=== PATIENT | male | born 1975 | race Two or more races ===

== ENCOUNTER 2022-08-04 09:54 | Inpatient (IN) | payer MEDICAID, OTHER ==
[~2022-08-04] VITALS: Ht 170.2 cm; Wt 99.6 kg
[2022-08-04] MEDS ORDERED: methylPREDNISolone SOD SUCC 125 MG/2 ML VL IV ONE (10:15)
[2022-08-04] MEDS ORDERED: ALBUTEROL SULF 2.5 MG/0.5ML(0.5%) NEB SOLN NEB ONE ×2 (10:15→10:30)
[2022-08-04] MEDS ORDERED: cefTRIAXone 1GM/50ML D5W 50 ML IV ONE (10:15)
[2022-08-04] MEDS ORDERED: IPRATROPIUM BROM 0.5 MG/2.5ML INH SOL NEB ONE (10:15)
[2022-08-04 11:12] LABS: Basophils # (auto) 0.1 10 ^3/uL (0-0.2); Basophils % (auto) 1.1 % (0.0-2.0); Eosinophils # (auto) 0.3 10 ^3/uL (0-0.8); Eosinophils % (auto) 2.2 % (0.0-7.0); Hematocrit 41.8 % (41.0-53.0); Hemoglobin 13.6 g/dL (13.5-17.5); Lymphocytes # (auto) 0.9 10 ^3/uL (0.4-5.4); Lymphocytes % (auto) 7.4 % (10.0-50.0); Mean Corpuscular Hemoglobin 28.3 pg (28.0-32.0); Mean Corpuscular Hgb Conc. 32.6 g/dL (32.0-36.0); Mean Corpuscular Volume 86.8 fL (80.0-100.0); Monocytes # (auto) 0.7 10 ^3/uL (0-1.3); Neutrophils # (auto) 9.9 10 ^3/uL (1.6-8.6); Neutrophils % (auto) 83.3 % (37.0-80.0); Nucleated Red Blood Cells % 0.1 %; Red Blood Cells 4.82 10^6/uL (4.5-5.90); Red Cell Distribution Width 15.1 % (11.8-14.3); White Blood Cell 11.8 10^3/uL (4.4-10.8)
[2022-08-04 11:32] LABS: Albumin 2.9 g/dL (3.4-5.0); Potassium 3.9 mmol/L (3.5-5.1)
[2022-08-04 12:10] LABS: BUN/Creatinine Ratio 14.3; Bilirubin, Total 0.3 mg/dL (0.2-1.0); Calcium 8.9 mg/dL (8.5-10.1); Total Protein 7.4 g/dL (6.4-8.2)
[2022-08-04] MEDS ORDERED: FUROSEMIDE 100 MG/10ML VIAL IV ONE (13:45)
[2022-08-04] MEDS ORDERED: ENOXAPARIN SOD 150 MG/1 ML SYRINGE SC ONE (13:45)
[2022-08-04 14:57] LABS: Urine Bacteria NONE SEEN /hpf (None Seen); Urine Blood TRACE /uL (Negative); Urine Specific Gravity 1.015 (1.001-1.035); Urine WBC 1 /hpf (0 - 3)
[2022-08-04] MEDS ORDERED: ONDANSETRON HCL 4 MG/2 ML VIAL IV PRN (15:15)
[2022-08-04] MEDS ORDERED: HYDROcodone-ACET 5/325MG TAB PO PRN (15:15)
[2022-08-04] MEDS ORDERED: ACETAMINOPHEN 325 MG TAB PO PRN (15:15)
[2022-08-04] MEDS ORDERED: DOCUSATE SOD 100 MG CAP PO PRN (15:15)
[2022-08-04] MEDS ORDERED: MORPHINE SULFATE INJ 2 MG/ml SYRG IV PRN (15:15)
[2022-08-04] MEDS: IPRATROPIUM BROM 0.5 MG/2.5ML INH SOL NEB PRN (21:56)
[2022-08-04] MEDS: ALBUTEROL SULF 2.5 MG/0.5ML(0.5%) NEB SOLN NEB PRN (21:56)
[2022-08-05 02:57] VITALS: BP 154/98
[2022-08-05 06:24] LABS: Basophils # (auto) 0 10 ^3/uL (0-0.2); Basophils % (auto) 0.2 % (0.0-2.0); Eosinophils # (auto) 0 10 ^3/uL (0-0.8); Hematocrit 41.5 % (41.0-53.0); Hemoglobin 13.5 g/dL (13.5-17.5); Lymphocytes # (auto) 0.7 10 ^3/uL (0.4-5.4); Lymphocytes % (auto) 7.6 % (10.0-50.0); Mean Corpuscular Hemoglobin 28.1 pg (28.0-32.0); Mean Corpuscular Hgb Conc. 32.6 g/dL (32.0-36.0); Mean Corpuscular Volume 86.1 fL (80.0-100.0); Monocytes # (auto) 0.5 10 ^3/uL (0-1.3); Monocytes % (auto) 4.8 % (0.0-12.0); Neutrophils # (auto) 8.5 10 ^3/uL (1.6-8.6); Neutrophils % (auto) 87.4 % (37.0-80.0); Red Blood Cells 4.81 10^6/uL (4.5-5.90); Red Cell Distribution Width 15.1 % (11.8-14.3); White Blood Cell 9.7 10^3/uL (4.4-10.8)
[2022-08-05 06:40] LABS: Potassium 4.6 mmol/L (3.5-5.1)
[2022-08-05 06:47] LABS: Albumin 2.8 g/dL (3.4-5.0); BUN/Creatinine Ratio 21.2; Bilirubin, Total 0.3 mg/dL (0.2-1.0); Calcium 8.9 mg/dL (8.5-10.1); Total Protein 7.2 g/dL (6.4-8.2)
[2022-08-05] MEDS: ENOXAPARIN SOD 40 MG/0.4 ML SYRINGE SC SCH (11:18)
[2022-08-05] MEDS: ALBUTEROL SULF 2.5 MG/0.5ML(0.5%) NEB SOLN NEB PRN ×2 (11:24→18:29)
[2022-08-05] MEDS: IPRATROPIUM BROM 0.5 MG/2.5ML INH SOL NEB PRN ×2 (11:24→18:29)
[2022-08-05] MEDS ORDERED: IOHEXOL 300 MG/ML 100ML BOTTLE IJ ONE (12:51)
[2022-08-05 15:59] VITALS: BP 130/79
[2022-08-05 16:00] VITALS: BP 130/79
[2022-08-05] MEDS: FUROSEMIDE 40 MG/4 ML VIAL IV SCH (18:37)
[2022-08-05 22:00] VITALS: BP 140/66
[2022-08-06] MEDS: ALBUTEROL SULF 2.5 MG/0.5ML(0.5%) NEB SOLN NEB PRN ×3 (04:51→17:45)
[2022-08-06] MEDS: IPRATROPIUM BROM 0.5 MG/2.5ML INH SOL NEB PRN ×3 (04:51→17:45)
[2022-08-06 05:00] VITALS: BP 111/57
[2022-08-06] MEDS: FUROSEMIDE 40 MG/4 ML VIAL IV SCH ×2 (05:52→17:38)
[2022-08-06 08:00] VITALS: BP 113/69
[2022-08-06] MEDS: cefTRIAXone 1GM/50ML D5W 50 ML IV SCH (08:33)
[2022-08-06] MEDS: AZITHROMYCIN 500MG/ 250ML 250 ML IV SCH (10:01)
[2022-08-06] MEDS: ENOXAPARIN SOD 40 MG/0.4 ML SYRINGE SC SCH (10:02)
[2022-08-06 13:00] VITALS: BP 118/49
[2022-08-06 16:00] VITALS: BP 140/70
[2022-08-06 22:14] VITALS: BP 125/65
[2022-08-07 05:14] VITALS: BP 110/60
[2022-08-07] MEDS: FUROSEMIDE 40 MG/4 ML VIAL IV SCH ×2 (05:39→18:13)
[2022-08-07] MEDS: IPRATROPIUM BROM 0.5 MG/2.5ML INH SOL NEB PRN (05:52)
[2022-08-07] MEDS: ALBUTEROL SULF 2.5 MG/0.5ML(0.5%) NEB SOLN NEB PRN (05:52)
[2022-08-07 09:00] VITALS: BP 117/53
[2022-08-07] MEDS: ENOXAPARIN SOD 40 MG/0.4 ML SYRINGE SC SCH (09:37)
[2022-08-07] MEDS: cefTRIAXone 1GM/50ML D5W 50 ML IV SCH (09:37)
[2022-08-07] MEDS: AZITHROMYCIN 500MG/ 250ML 250 ML IV SCH (10:14)
[2022-08-07 13:00] VITALS: BP 100/51
[2022-08-07] MEDS: ALBUTEROL SULF 2.5 MG/0.5ML(0.5%) NEB SOLN NEB SCH ×2 (14:03→18:40)
[2022-08-07] MEDS: IPRATROPIUM BROM 0.5 MG/2.5ML INH SOL NEB SCH ×3 (14:03→22:14)
[2022-08-07] MEDS: methylPREDNISolone SOD SUCC 40 MG/ML VL IV SCH ×2 (15:34→21:51)
[2022-08-07 16:58] VITALS: BP 116/53
[2022-08-07 22:04] VITALS: BP 116/53
[2022-08-07] MEDS: BUDESONIDE (INHALATION) 0.5 MG/2 ML NEB NEB SCH (22:15)
[2022-08-07 23:23] VITALS: BP 119/69
[2022-08-08] MEDS: IPRATROPIUM BROM 0.5 MG/2.5ML INH SOL NEB SCH ×6 (02:20→22:20)
[2022-08-08] MEDS: ALBUTEROL SULF 2.5 MG/0.5ML(0.5%) NEB SOLN NEB SCH ×6 (02:20→22:19)
[2022-08-08] MEDS: FUROSEMIDE 40 MG/4 ML VIAL IV SCH ×2 (05:30→18:19)
[2022-08-08] MEDS: methylPREDNISolone SOD SUCC 40 MG/ML VL IV SCH ×3 (05:30→21:37)
[2022-08-08 06:25] VITALS: BP 118/60
[2022-08-08 09:00] VITALS: BP 126/76
[2022-08-08] MEDS: BUDESONIDE (INHALATION) 0.5 MG/2 ML NEB NEB SCH ×3 (09:59→22:20)
[2022-08-08] MEDS: ENOXAPARIN SOD 40 MG/0.4 ML SYRINGE SC SCH (10:08)
[2022-08-08] MEDS: cefTRIAXone 1GM/50ML D5W 50 ML IV SCH (10:09)
[2022-08-08] MEDS: AZITHROMYCIN 500MG/ 250ML 250 ML IV SCH (10:09)
[2022-08-08 12:49] VITALS: BP 105/48
[2022-08-08] MEDS ORDERED: AMOX-277 PO (13:50)
[2022-08-08] MEDS ORDERED: APIX5TAB PO (13:50)
[2022-08-08] MEDS ORDERED: ALBUTEROL SULF HFA 90MCG INH 200DOSE IN PRN (14:00)
[2022-08-08] MEDS ORDERED: ALBUAER3 IN (14:38)
[2022-08-08 15:43] LABS: BUN/Creatinine Ratio 18.4; Calcium 9.5 mg/dL (8.5-10.1); Potassium 4.1 mmol/L (3.5-5.1)
[2022-08-08 17:00] VITALS: BP 119/50
[2022-08-08 22:00] VITALS: BP 118/50
[2022-08-09] MEDS: IPRATROPIUM BROM 0.5 MG/2.5ML INH SOL NEB SCH ×5 (02:00→18:14)
[2022-08-09 05:00] VITALS: BP 111/51
[2022-08-09] MEDS: FUROSEMIDE 40 MG/4 ML VIAL IV SCH ×2 (05:19→18:36)
[2022-08-09] MEDS: methylPREDNISolone SOD SUCC 40 MG/ML VL IV SCH ×2 (05:19→14:00)
[2022-08-09] MEDS: ALBUTEROL SULF 2.5 MG/0.5ML(0.5%) NEB SOLN NEB SCH ×4 (06:42→18:14)
[2022-08-09 09:00] VITALS: BP 104/52
[2022-08-09] MEDS: AZITHROMYCIN 500MG/ 250ML 250 ML IV SCH (10:00)
[2022-08-09] MEDS: BUDESONIDE (INHALATION) 0.5 MG/2 ML NEB NEB SCH ×2 (10:02→18:14)
[2022-08-09] MEDS: ENOXAPARIN SOD 40 MG/0.4 ML SYRINGE SC SCH (10:13)
[2022-08-09] MEDS: cefTRIAXone 1GM/50ML D5W 50 ML IV SCH (10:13)
[2022-08-09 13:00] VITALS: BP 113/71
[2022-08-09 16:55] VITALS: BP 122/68
[2022-08-09 18:47] VITALS: BP 122/68
== END 2022-08-09 20:20 | disposition home or self-care (01) | DRG 139 ==
LOC: EDBD 09:54 → ER 09:54 → TELE 15:14 → TELE-CENTR 08-05 15:41 → CENTRAL 08-08 20:23
PROVIDERS: ADMIT Internal Medicine; ATTEND Internal Medicine
DX: J18.9 Pneumonia, unspecified organism (principal); J96.21 Acute and chronic respiratory failure with hypoxia; I26.99 Other pulmonary embolism without acute cor pulmonale; I50.9 Heart failure, unspecified; E88.09 Other disorders of plasma-protein metabolism, not elsewhere classified; E66.2 Morbid (severe) obesity with alveolar hypoventilation; J44.0 Chronic obstructive pulmonary disease with (acute) lower respiratory infection; J44.1 Chronic obstructive pulmonary disease with (acute) exacerbation; J98.11 Atelectasis; D72.829 Elevated white blood cell count, unspecified; R79.89 Other specified abnormal findings of blood chemistry; Z68.45 Body mass index [BMI] 70 or greater, adult; Z20.822 Contact with and (suspected) exposure to COVID-19; I11.0 Hypertensive heart disease with heart failure
CPT/HCPCS: 36415; 36600; 71045; 80048; 80053; 81001; 82805; 83880; 84484; 85025; 85379; 93005; 93970; 94640; 94644; 96365; 96372; 96375; 99291; G0378; J0696

== ENCOUNTER 2023-06-11 11:03 | Inpatient (IN) | payer MEDICAID ==
[~2023-06-11] VITALS: Ht 177.8 cm; Wt 209.5 kg
[2023-06-11] VITALS (12 sets, daily range): BP systolic 87–124; BP diastolic 45–99; PULSE 94–124; RESP 14–35; O2SAT 94–100
[~2023-06-11 11:03] MED LIST: ALBUAER3 IN; AMOX875T4 PO; APIX5TAB PO
[2023-06-11] MEDS ORDERED: ALBUTEROL SULF 2.5 MG/0.5ML(0.5%) NEB SOLN ONE ×2 (11:09→14:03)
[2023-06-11] MEDS ORDERED: AZITHROMYCIN 500MG/ 250ML 250 ML IV ONE (11:15)
[2023-06-11] MEDS ORDERED: ALBUTEROL SULF 2.5 MG/0.5ML(0.5%) NEB SOLN NEB ONE (11:15)
[2023-06-11] MEDS ORDERED: SODIUM CHLORIDE 0.9% 1,000 ML IV ONE ×2 (11:15)
[2023-06-11] MEDS ORDERED: DexAMETHasone SOD PHOS 10MG/1ML VIAL INJ IV ONE (11:15)
[2023-06-11] MEDS ORDERED: cefTRIAXone 1GM/50ML D5W 50 ML IV ONE (11:15)
[2023-06-11 11:46] LABS: Albumin 2.4 g/dL (3.4-5.0); BUN/Creatinine Ratio 7.6 (10.0-20.0); Calcium 7.4 mg/dL (8.5-10.1); Potassium 3.4 mmol/L (3.5-5.1)
[2023-06-11 11:49] LABS: Lactic Acid w/Reflex 9.8 mmol/L (0.4-2.0)
[2023-06-11 11:55] LABS: Bilirubin, Total 0.7 mg/dL (0.2-1.0); Total Protein 5.9 g/dL (6.4-8.2)
[2023-06-11 12:12] LABS: Hematocrit 44.3 % (41.0-53.0); Mean Corpuscular Hgb Conc. 31.5 g/dL (32.0-36.0); Mean Corpuscular Volume 88.7 fL (80.0-100.0); Red Cell Distribution Width 16.9 % (11.8-14.3); White Blood Cell 25.6 10^3/uL (4.4-10.8)
[2023-06-11 12:13] LABS: Basophils % (manual) 0 (0.0-2.0); Blast Cells 0; Metamyelocytes % 0; Promyelocytes % 0; Reactive Lymphocytes 0
[2023-06-11] MEDS ORDERED: HEPARIN SODIUM (PORCINE) 5000 UNITS/ML 1ML VIAL IV ONE ×2 (12:30→17:00)
[2023-06-11] MEDS ORDERED: POTASSIUM EFFERVESENT TAB 25 MEQ PO ONE (13:45)
[2023-06-11] MEDS ORDERED: MORPHINE SULFATE INJ 2 MG/ml SYRG IV PRN (13:45)
[2023-06-11] MEDS ORDERED: NITROGLYCERIN 0.4 MG SL TAB SL PRN (13:45)
[2023-06-11] MEDS ORDERED: DEXTROSE (50%) 50ML SYRG IV PRN (13:45)
[2023-06-11] MEDS ORDERED: FUROSEMIDE 100 MG/10ML VIAL IV ONE (13:45)
[2023-06-11] MEDS ORDERED: IPRATROPIUM BROM 0.5 MG/2.5ML INH SOL NEB PRN (13:45)
[2023-06-11] MEDS ORDERED: ALBUTEROL SULF 2.5 MG/0.5ML(0.5%) NEB SOLN NEB PRN (13:45)
[2023-06-11] MEDS: IPRATROPIUM BROM 0.5 MG/2.5ML INH SOL NEB SCH ×2 (14:04→18:32)
[2023-06-11] MEDS ORDERED: IPRATROPIUM BROM 0.5 MG/2.5ML INH SOL ONE (14:04)
[2023-06-11] MEDS: ALBUTEROL SULF 2.5 MG/0.5ML(0.5%) NEB SOLN NEB SCH ×2 (14:04→18:32)
[2023-06-11 14:20] LABS: Band Neutrophils % (manual) 4; Eosinophils % (manual) 1 (0-7); Lymphocytes % (manual) 1 (10.0-50.0); Monocytes % (manual) 1 (0-12); Myelocytes % 3
[2023-06-11] MEDS: SODIUM CHLORIDE 0.9% 1,000 ML IV SCH ×2 (14:58→20:10)
[2023-06-11] MEDS: CEFEPIME 1GM/ 50ML 50 ML IV SCH (16:37)
[2023-06-11] MEDS ORDERED: HEPARIN DRIP/D5W 100UNITS/ML 250 ML IV SCH (17:00)
[2023-06-11] MEDS: InsuLIN REG 1unit/0.01ml Soln (100units/ml) SC SCH ×2 (17:57→21:49)
[2023-06-11] MEDS: ACCU-CHEK COMFORT CURVE STRIP VI SCH ×2 (17:57→21:49)
[2023-06-11] MEDS ORDERED: ONDANSETRON HCL 4 MG/2 ML VIAL IV PRN (18:00)
[2023-06-11] MEDS: ONDANSETRON HCL 4 MG/2 ML VIAL IV PRN ×2 (18:17→23:26)
[2023-06-11] MEDS: MORPHINE SULFATE INJ 2 MG/ml SYRG IV PRN ×2 (18:21→23:35)
[2023-06-11 18:22] LABS: Hematocrit 51.8 % (41.0-53.0); Hemoglobin 16.9 g/dL (13.5-17.5); Mean Corpuscular Hemoglobin 28.5 pg (28.0-32.0); Mean Corpuscular Hgb Conc. 32.5 g/dL (32.0-36.0); Mean Corpuscular Volume 87.6 fL (80.0-100.0); Red Blood Cells 5.92 10^6/uL (4.5-5.90); Red Cell Distribution Width 16.8 % (11.8-14.3); White Blood Cell 27.5 10^3/uL (4.4-10.8)
[2023-06-11 18:24] LABS: Basophils % (manual) 0 (0.0-2.0); Blast Cells 0; Eosinophils % (manual) 0 (0-7); Myelocytes % 0; Promyelocytes % 0; Reactive Lymphocytes 0
[2023-06-11 18:37] LABS: INR 1.09 (0.9-1.15); Partial Thromboplastin Time 27.6 SEC (24.5-34.5)
[2023-06-11] MEDS: HEPARIN DRIP/D5W 100UNITS/ML 250 ML IV SCH (18:50)
[2023-06-11] MEDS: ACETAMINOPHEN 325 MG TAB PO PRN (19:04)
[2023-06-11 19:06] LABS: Lactic Acid w/Reflex 7.8 mmol/L (0.4-2.0)
[2023-06-11 19:38] LABS: Band Neutrophils % (manual) 43; Lymphocytes % (manual) 1 (10.0-50.0); Metamyelocytes % 2; Monocytes % (manual) 6 (0-12)
[2023-06-11] MEDS: NOREPINEPHRINE 8 MG/250ML KIT 250 ML IV SCH (21:14)
[2023-06-11] MEDS ORDERED: ENOXAPARIN SOD 150 MG/1 ML SYRINGE SC SCH (22:00)
[2023-06-11] MEDS: ATORVASTATIN 20 MG TAB PO SCH (22:05)
[2023-06-11] MEDS: METOPROLOL TARTRATE 50 MG TAB PO SCH (22:05)
[2023-06-11] MEDS: LINEZOLID 600MG/300ML 300 ML IV SCH (22:05)
[2023-06-11 22:53] LABS: Urine Bacteria FEW /hpf (None Seen); Urine Blood 3+ /uL (Negative); Urine Hyaline Cast FEW /lpf (0 - 2); Urine Mucus FEW (None Seen); Urine WBC 17 /hpf (0 - 3)
[2023-06-11 22:57] LABS: Alcohol, Urine < 3.0 mg/dL (0-10); Amphetamine Screen, Urine POSITIVE (NEGATIVE); Barbiturate Scree,Urine NEGATIVE (NEGATIVE); Benzodiazephine Screen, Urine NEGATIVE (NEGATIVE); Cannabinoid Screen, Urine POSITIVE (NEGATIVE); Cocaine Screen, Urine NEGATIVE (NEGATIVE)
[2023-06-11 23:05] LABS: Opiate Scree,Urine NEGATIVE (NEGATIVE); Phencyclidine Screen, Urine NEGATIVE (NEGATIVE)
[2023-06-12] VITALS (57 sets, daily range): BP systolic 94–149; BP diastolic 27–122; PULSE 91–106; RESP 11–36; TEMP 97.9–100.4; O2SAT 91–100
[2023-06-12 01:07] LABS: INR 1.21 (0.9-1.15); Partial Thromboplastin Time 30.4 SEC (24.5-34.5)
[2023-06-12 01:22] LABS: Lactic Acid w/Reflex 5.1 mmol/L (0.4-2.0)
[2023-06-12] MEDS ORDERED: HEPARIN SODIUM (PORCINE) 5000 UNITS/ML 1ML VIAL ONE (01:33)
[2023-06-12] MEDS ORDERED: HEPARIN SODIUM (PORCINE) 5000 UNITS/ML 1ML VIAL IV ONE (02:00)
[2023-06-12] MEDS: CEFEPIME 1GM/ 50ML 50 ML IV SCH ×2 (04:05→15:53)
[2023-06-12] MEDS: ALBUTEROL SULF 2.5 MG/0.5ML(0.5%) NEB SOLN NEB SCH ×6 (05:06→21:56)
[2023-06-12] MEDS: IPRATROPIUM BROM 0.5 MG/2.5ML INH SOL NEB SCH ×6 (05:06→21:56)
[2023-06-12] MEDS: FUROSEMIDE 40 MG/4 ML VIAL IV SCH ×2 (06:20→17:46)
[2023-06-12] MEDS: SODIUM CHLORIDE 0.9% 1,000 ML IV SCH (06:25)
[2023-06-12] MEDS: InsuLIN REG 1unit/0.01ml Soln (100units/ml) SC SCH ×4 (06:30→22:00)
[2023-06-12] MEDS: ACCU-CHEK COMFORT CURVE STRIP VI SCH ×4 (06:30→23:18)
[2023-06-12] MEDS: HEPARIN DRIP/D5W 100UNITS/ML 250 ML IV SCH (06:39)
[2023-06-12 07:54] LABS: Hemoglobin 15.9 g/dL (13.5-17.5)
[2023-06-12 07:55] LABS: Hematocrit 50.8 % (41.0-53.0); Mean Corpuscular Hemoglobin 28.1 pg (28.0-32.0); Mean Corpuscular Hgb Conc. 31.3 g/dL (32.0-36.0); Mean Corpuscular Volume 89.8 fL (80.0-100.0); Red Blood Cells 5.65 10^6/uL (4.5-5.90); Red Cell Distribution Width 17.1 % (11.8-14.3)
[2023-06-12 07:59] LABS: White Blood Cell 31.6 10^3/uL (4.4-10.8)
[2023-06-12 08:01] LABS: Basophils % (manual) 0 (0.0-2.0); Blast Cells 0; Eosinophils % (manual) 0 (0-7); Metamyelocytes % 0; Myelocytes % 0; Promyelocytes % 0; Reactive Lymphocytes 0
[2023-06-12 08:05] LABS: Potassium 5.2 mmol/L (3.5-5.1)
[2023-06-12 08:20] LABS: Albumin 2.3 g/dL (3.4-5.0); BUN/Creatinine Ratio 10.5 (10.0-20.0); Bilirubin, Total 1.1 mg/dL (0.2-1.0); Calcium 8.4 mg/dL (8.5-10.1); Total Protein 7.6 g/dL (6.4-8.2)
[2023-06-12] MEDS ORDERED: cefTRIAXone 1GM/50ML D5W 50 ML IV SCH (09:00)
[2023-06-12] MEDS: ENOXAPARIN SOD 150 MG/1 ML SYRINGE SC SCH ×2 (10:00→23:22)
[2023-06-12] MEDS ORDERED: POTASSIUM CHL 20 Meq TABLET PO SCH (10:00)
[2023-06-12] MEDS ORDERED: AZITHROMYCIN 500MG/ 250ML 250 ML IV SCH (10:00)
[2023-06-12] MEDS ORDERED: FUROSEMIDE 40 MG/4 ML VIAL IV SCH (10:00)
[2023-06-12 10:09] LABS: Lactic Acid w/Reflex 4.3 mmol/L (0.4-2.0)
[2023-06-12] MEDS: ASPirin-EC 81 mg tab PO SCH (10:59)
[2023-06-12] MEDS: LINEZOLID 600MG/300ML 300 ML IV SCH ×2 (10:59→23:22)
[2023-06-12] MEDS: PANTOPRAZOLE 40 MG/10 ML VIAL INJ IV SCH (11:01)
[2023-06-12] MEDS: METOPROLOL TARTRATE 50 MG TAB PO SCH ×2 (11:01→23:21)
[2023-06-12 11:05] LABS: INR 1.25 (0.9-1.15); Partial Thromboplastin Time 34.3 SEC (24.5-34.5)
[2023-06-12 11:08] LABS: Band Neutrophils % (manual) 4; Lymphocytes % (manual) 4 (10.0-50.0); Monocytes % (manual) 1 (0-12)
[2023-06-12] MEDS: NOREPINEPHRINE 8 MG/250ML KIT 250 ML IV SCH (14:45)
[2023-06-12] MEDS: ATORVASTATIN 20 MG TAB PO SCH (23:21)
[2023-06-13] VITALS (17 sets, daily range): BP systolic 107–145; BP diastolic 50–83; PULSE 71–103; RESP 18–28; TEMP 98–98.8; O2SAT 88–99
[2023-06-13] MEDS: CEFEPIME 1GM/ 50ML 50 ML IV SCH ×2 (03:35→14:51)
[2023-06-13] MEDS: ONDANSETRON HCL 4 MG/2 ML VIAL IV PRN (05:35)
[2023-06-13] MEDS: FUROSEMIDE 40 MG/4 ML VIAL IV SCH ×2 (05:42→17:23)
[2023-06-13] MEDS: ALBUTEROL SULF 2.5 MG/0.5ML(0.5%) NEB SOLN NEB SCH ×5 (06:27→22:00)
[2023-06-13] MEDS: IPRATROPIUM BROM 0.5 MG/2.5ML INH SOL NEB SCH ×5 (06:27→22:00)
[2023-06-13] MEDS: ACCU-CHEK COMFORT CURVE STRIP VI SCH ×2 (06:44→11:45)
[2023-06-13] MEDS: InsuLIN REG 1unit/0.01ml Soln (100units/ml) SC SCH ×2 (06:45→11:30)
[2023-06-13] MEDS: ACETAMINOPHEN 325 MG TAB PO PRN (09:33)
[2023-06-13] MEDS: ASPirin-EC 81 mg tab PO SCH ×2 (10:00→10:22)
[2023-06-13] MEDS: METOPROLOL TARTRATE 50 MG TAB PO SCH ×3 (10:00→21:32)
[2023-06-13] MEDS: PANTOPRAZOLE 40 MG/10 ML VIAL INJ IV SCH (10:22)
[2023-06-13] MEDS: LINEZOLID 600MG/300ML 300 ML IV SCH ×2 (10:22→21:31)
[2023-06-13] MEDS: ENOXAPARIN SOD 150 MG/1 ML SYRINGE SC SCH (10:22)
[2023-06-13] MEDS: DAKINS QUARTER STR 0.125% (NaHypochlorite) 473 ML TOPICAL SOL TOP SCH (10:22)
[2023-06-13] MEDS ORDERED: LORazepam 2MG/ML-1ML VIAL IV ONE (11:30)
[2023-06-13] MEDS: MULTIPLE VITAMINS W/ MINERALS TAB PO SCH (11:48)
[2023-06-13 13:31] LABS: Albumin 2.4 g/dL (3.4-5.0); Calcium 7.9 mg/dL (8.5-10.1); Potassium 4.6 mmol/L (3.5-5.1)
[2023-06-13 13:36] LABS: BUN/Creatinine Ratio 16.5 (10.0-20.0); Bilirubin, Total 1.9 mg/dL (0.2-1.0); Total Protein 6.7 g/dL (6.4-8.2)
[2023-06-13 16:20] LABS: Hemoglobin 14.9 g/dL (13.5-17.5); Mean Corpuscular Hgb Conc. 32.5 g/dL (32.0-36.0); Mean Corpuscular Volume 89.2 fL (80.0-100.0); Red Blood Cells 5.15 10^6/uL (4.5-5.90); Red Cell Distribution Width 17.3 % (11.8-14.3); White Blood Cell 28.6 10^3/uL (4.4-10.8)
[2023-06-13 16:22] LABS: Basophils % (manual) 0 (0.0-2.0); Blast Cells 0; Eosinophils % (manual) 0 (0-7); Myelocytes % 0; Promyelocytes % 0; Reactive Lymphocytes 0
[2023-06-13 17:20] LABS: Band Neutrophils % (manual) 22; Metamyelocytes % 1
[2023-06-13 17:21] LABS: Lymphocytes % (manual) 3 (10.0-50.0); Monocytes % (manual) 5 (0-12)
[2023-06-13] MEDS: ALPRAZolam 0.25 MG TAB PO PRN (17:23)
[2023-06-13] MEDS: ATORVASTATIN 20 MG TAB PO SCH (21:32)
[2023-06-14] VITALS (18 sets, daily range): BP systolic 120–130; BP diastolic 70–80; PULSE 62–94; RESP 17–20; TEMP 97.9–98.8; O2SAT 90–100
[2023-06-14] MEDS: CEFEPIME 1GM/ 50ML 50 ML IV SCH ×2 (03:02→15:40)
[2023-06-14] MEDS: ACETAMINOPHEN 325 MG TAB PO PRN (03:02)
[2023-06-14] MEDS: ALPRAZolam 0.25 MG TAB PO PRN (03:03)
[2023-06-14] MEDS: FUROSEMIDE 40 MG/4 ML VIAL IV SCH ×2 (05:36→18:02)
[2023-06-14 06:57] LABS: Hematocrit 44.2 % (41.0-53.0); Hemoglobin 14.5 g/dL (13.5-17.5); Mean Corpuscular Hemoglobin 28.1 pg (28.0-32.0); Mean Corpuscular Hgb Conc. 32.7 g/dL (32.0-36.0); Mean Corpuscular Volume 85.8 fL (80.0-100.0); Red Blood Cells 5.15 10^6/uL (4.5-5.90); Red Cell Distribution Width 16.9 % (11.8-14.3); White Blood Cell 26.6 10^3/uL (4.4-10.8)
[2023-06-14] MEDS: ALBUTEROL SULF 2.5 MG/0.5ML(0.5%) NEB SOLN NEB SCH ×5 (07:01→22:13)
[2023-06-14] MEDS: IPRATROPIUM BROM 0.5 MG/2.5ML INH SOL NEB SCH ×5 (07:01→22:13)
[2023-06-14 07:04] LABS: Anion Gap 17 (5-15); Blood Urea Nitrogen 70 mg/dL (7-18); Calcium 7.5 mg/dL (8.5-10.1); Carbon Dioxide 22 mmol/L (21-32); Chloride 94 mmol/L (98-107); GFR African American 27 mL/min; GFR Non-African American 22 mL/min; Glucose 75 mg/dL (74-106); Potassium 3.8 mmol/L (3.5-5.1); Sodium 133 mmol/L (136-145)
[2023-06-14 07:08] LABS: Basophils % (manual) 0 (0.0-2.0); Blast Cells 0; Eosinophils % (manual) 0 (0-7); Metamyelocytes % 0; Myelocytes % 0; Promyelocytes % 0; Reactive Lymphocytes 0
[2023-06-14 08:46] LABS: Band Neutrophils % (manual) 6; Lymphocytes % (manual) 4 (10.0-50.0); Monocytes % (manual) 8 (0-12)
[2023-06-14] MEDS: DAKINS QUARTER STR 0.125% (NaHypochlorite) 473 ML TOPICAL SOL TOP SCH (10:00)
[2023-06-14] MEDS ORDERED: ENOXAPARIN SOD 150 MG/1 ML SYRINGE SC SCH (10:00)
[2023-06-14] MEDS: PANTOPRAZOLE 40 MG/10 ML VIAL INJ IV SCH (10:33)
[2023-06-14] MEDS: ASPirin-EC 81 mg tab PO SCH (10:34)
[2023-06-14] MEDS: LINEZOLID 600MG/300ML 300 ML IV SCH ×2 (10:34→23:22)
[2023-06-14] MEDS: MULTIPLE VITAMINS W/ MINERALS TAB PO SCH (10:35)
[2023-06-14] MEDS: CHOLECALCIFEROL (VITD3) 2,000 UNIT CAP/TAB PO SCH (10:35)
[2023-06-14] MEDS: METOPROLOL TARTRATE 50 MG TAB PO SCH ×2 (10:35→23:24)
[2023-06-14] MEDS: ATORVASTATIN 20 MG TAB PO SCH (23:23)
[2023-06-14] MEDS: ENOXAPARIN SOD 150 MG/1 ML SYRINGE SC SCH (23:23)
[2023-06-15] VITALS (18 sets, daily range): BP systolic 120–147; BP diastolic 50–82; PULSE 75–99; RESP 16–22; TEMP 97.9–98.6; O2SAT 92–99
[2023-06-15] MEDS: CEFEPIME 1GM/ 50ML 50 ML IV SCH ×2 (03:54→15:07)
[2023-06-15] MEDS: FUROSEMIDE 40 MG/4 ML VIAL IV SCH ×2 (05:57→12:10)
[2023-06-15] MEDS: IPRATROPIUM BROM 0.5 MG/2.5ML INH SOL NEB SCH ×5 (06:20→23:13)
[2023-06-15] MEDS: ALBUTEROL SULF 2.5 MG/0.5ML(0.5%) NEB SOLN NEB SCH ×5 (06:20→23:13)
[2023-06-15] MEDS: DAKINS QUARTER STR 0.125% (NaHypochlorite) 473 ML TOPICAL SOL TOP SCH (10:00)
[2023-06-15 10:09] LABS: Basophils # (auto) 0 10 ^3/uL (0-0.2); Basophils % (auto) 0.1 % (0.0-2.0); Eosinophils # (auto) 0.1 10 ^3/uL (0-0.8); Eosinophils % (auto) 0.7 % (0.0-7.0); Hematocrit 41.8 % (41.0-53.0); Hemoglobin 13.9 g/dL (13.5-17.5); Lymphocytes % (auto) 6.7 % (10.0-50.0); Mean Corpuscular Hemoglobin 28.1 pg (28.0-32.0); Mean Corpuscular Hgb Conc. 33.2 g/dL (32.0-36.0); Mean Corpuscular Volume 84.6 fL (80.0-100.0); Monocytes # (auto) 1.7 10 ^3/uL (0-1.3); Neutrophils # (auto) 12.4 10 ^3/uL (1.6-8.6); Neutrophils % (auto) 81.5 % (37.0-80.0); Red Blood Cells 4.95 10^6/uL (4.5-5.90); Red Cell Distribution Width 16.4 % (11.8-14.3); White Blood Cell 15.3 10^3/uL (4.4-10.8)
[2023-06-15 10:22] LABS: BUN/Creatinine Ratio 30.7 (10.0-20.0); Magnesium 2.5 mg/dL (1.6-2.6)
[2023-06-15 10:35] LABS: Potassium 2.8 mmol/L (3.5-5.1)
[2023-06-15] MEDS ORDERED: POTASSIUM EFFERVESENT TAB 25 MEQ PO ONE ×2 (10:45→12:00)
[2023-06-15] MEDS: ENOXAPARIN SOD 150 MG/1 ML SYRINGE SC SCH ×2 (12:08→23:05)
[2023-06-15] MEDS: PANTOPRAZOLE 40 MG/10 ML VIAL INJ IV SCH (12:09)
[2023-06-15] MEDS: MULTIPLE VITAMINS W/ MINERALS TAB PO SCH (12:10)
[2023-06-15] MEDS: ASPirin-EC 81 mg tab PO SCH (12:10)
[2023-06-15] MEDS: METOPROLOL TARTRATE 50 MG TAB PO SCH ×2 (12:11→23:04)
[2023-06-15] MEDS: CHOLECALCIFEROL (VITD3) 2,000 UNIT CAP/TAB PO SCH (12:11)
[2023-06-15] MEDS: LINEZOLID 600MG/300ML 300 ML IV SCH ×2 (12:14→23:10)
[2023-06-15] MEDS: ATORVASTATIN 20 MG TAB PO SCH (23:01)
[2023-06-16] VITALS (18 sets, daily range): BP systolic 119–142; BP diastolic 42–76; PULSE 60–98; RESP 16–40; TEMP 97–98.1; O2SAT 84–99
[2023-06-16] MEDS: CEFEPIME 2GM/50ML NS 50 ML IV SCH ×3 (02:03→22:00)
[2023-06-16 05:51] LABS: Basophils # (auto) 0 10 ^3/uL (0-0.2); Basophils % (auto) 0.2 % (0.0-2.0); Eosinophils # (auto) 0.1 10 ^3/uL (0-0.8); Eosinophils % (auto) 0.6 % (0.0-7.0); Hematocrit 42.3 % (41.0-53.0); Hemoglobin 14.2 g/dL (13.5-17.5); Lymphocytes # (auto) 1.4 10 ^3/uL (0.4-5.4); Lymphocytes % (auto) 12.9 % (10.0-50.0); Mean Corpuscular Hemoglobin 28.5 pg (28.0-32.0); Mean Corpuscular Hgb Conc. 33.5 g/dL (32.0-36.0); Monocytes # (auto) 1.9 10 ^3/uL (0-1.3); Neutrophils # (auto) 7.5 10 ^3/uL (1.6-8.6); Neutrophils % (auto) 69.3 % (37.0-80.0); Nucleated Red Blood Cells % 0.1 %; Red Blood Cells 4.97 10^6/uL (4.5-5.90); Red Cell Distribution Width 16.7 % (11.8-14.3); White Blood Cell 10.9 10^3/uL (4.4-10.8)
[2023-06-16 06:01] LABS: BUN/Creatinine Ratio 34.8 (10.0-20.0); Calcium 7.6 mg/dL (8.5-10.1); Magnesium 2.2 mg/dL (1.6-2.6)
[2023-06-16 06:37] LABS: Potassium 2.9 mmol/L (3.5-5.1)
[2023-06-16] MEDS ORDERED: POTASSIUM CHL 20 Meq TABLET PO ONE (07:00)
[2023-06-16] MEDS: IPRATROPIUM BROM 0.5 MG/2.5ML INH SOL NEB SCH ×3 (07:32→17:10)
[2023-06-16] MEDS: ALBUTEROL SULF 2.5 MG/0.5ML(0.5%) NEB SOLN NEB SCH ×3 (07:33→17:10)
[2023-06-16] MEDS: PANTOPRAZOLE 40 MG/10 ML VIAL INJ IV SCH (10:11)
[2023-06-16] MEDS: DAKINS QUARTER STR 0.125% (NaHypochlorite) 473 ML TOPICAL SOL TOP SCH (10:11)
[2023-06-16] MEDS: CHOLECALCIFEROL (VITD3) 2,000 UNIT CAP/TAB PO SCH (10:12)
[2023-06-16] MEDS: MULTIPLE VITAMINS W/ MINERALS TAB PO SCH (10:12)
[2023-06-16] MEDS: FUROSEMIDE 40 MG/4 ML VIAL IV SCH (10:12)
[2023-06-16] MEDS: LINEZOLID 600MG/300ML 300 ML IV SCH ×2 (10:12→22:24)
[2023-06-16] MEDS: ENOXAPARIN SOD 150 MG/1 ML SYRINGE SC SCH ×2 (10:13→22:21)
[2023-06-16] MEDS: METOPROLOL TARTRATE 50 MG TAB PO SCH ×2 (10:13→22:19)
[2023-06-16] MEDS: ASPirin-EC 81 mg tab PO SCH (10:13)
[2023-06-16] MEDS ORDERED: POTASSIUM EFFERVESENT TAB 25 MEQ PO ONE (10:30)
[2023-06-16] MEDS: ATORVASTATIN 20 MG TAB PO SCH (22:19)
[2023-06-17] VITALS (15 sets, daily range): BP systolic 115–130; BP diastolic 52–67; PULSE 72–101; RESP 20–28; TEMP 97.6–98.3; O2SAT 88–100
[2023-06-17] MEDS: IPRATROPIUM BROM 0.5 MG/2.5ML INH SOL NEB SCH ×3 (06:29→19:16)
[2023-06-17] MEDS: ALBUTEROL SULF 2.5 MG/0.5ML(0.5%) NEB SOLN NEB SCH ×3 (06:29→19:16)
[2023-06-17] MEDS: CHOLECALCIFEROL (VITD3) 2,000 UNIT CAP/TAB PO SCH (10:00)
[2023-06-17] MEDS: ENOXAPARIN SOD 150 MG/1 ML SYRINGE SC SCH ×2 (10:00→22:40)
[2023-06-17] MEDS: PANTOPRAZOLE 40 MG/10 ML VIAL INJ IV SCH (11:03)
[2023-06-17] MEDS: CEFEPIME 2GM/50ML NS 50 ML IV SCH ×2 (11:03→22:43)
[2023-06-17] MEDS: ASPirin-EC 81 mg tab PO SCH (11:03)
[2023-06-17] MEDS: FUROSEMIDE 40 MG/4 ML VIAL IV SCH (11:04)
[2023-06-17] MEDS: MULTIPLE VITAMINS W/ MINERALS TAB PO SCH (11:04)
[2023-06-17] MEDS: METOPROLOL TARTRATE 50 MG TAB PO SCH ×2 (11:04→22:38)
[2023-06-17] MEDS: DAKINS QUARTER STR 0.125% (NaHypochlorite) 473 ML TOPICAL SOL TOP SCH (11:05)
[2023-06-17 12:51] LABS: Albumin 2.2 g/dL (3.4-5.0); Calcium 9.1 mg/dL (8.5-10.1)
[2023-06-17 12:56] LABS: Bilirubin, Total 0.9 mg/dL (0.2-1.0); Total Protein 7.6 g/dL (6.4-8.2)
[2023-06-17] MEDS ORDERED: POTASSIUM CHL 20MEQ/100ML 100 ML IV ONE ×2 (13:45→20:30)
[2023-06-17 15:41] LABS: Basophils # (auto) 0 10 ^3/uL (0-0.2); Basophils % (auto) 0.3 % (0.0-2.0); Eosinophils # (auto) 0.1 10 ^3/uL (0-0.8); Hematocrit 44.6 % (41.0-53.0); Hemoglobin 14.5 g/dL (13.5-17.5); Lymphocytes # (auto) 1.9 10 ^3/uL (0.4-5.4); Lymphocytes % (auto) 13.5 % (10.0-50.0); Mean Corpuscular Hemoglobin 28.2 pg (28.0-32.0); Mean Corpuscular Hgb Conc. 32.4 g/dL (32.0-36.0); Mean Corpuscular Volume 86.8 fL (80.0-100.0); Monocytes # (auto) 1.4 10 ^3/uL (0-1.3); Neutrophils # (auto) 10.5 10 ^3/uL (1.6-8.6); Neutrophils % (auto) 75.2 % (37.0-80.0); Nucleated Red Blood Cells % 0.2 %; Red Blood Cells 5.13 10^6/uL (4.5-5.90); White Blood Cell 13.9 10^3/uL (4.4-10.8)
[2023-06-17] MEDS: LINEZOLID 600MG/300ML 300 ML IV SCH (16:08)
[2023-06-17] MEDS: ATORVASTATIN 20 MG TAB PO SCH (22:37)
[2023-06-18] VITALS (10 sets, daily range): BP systolic 135–146; BP diastolic 68–86; PULSE 75–113; RESP 16–24; TEMP 97.6–98; O2SAT 93–100
[2023-06-18] MEDS: LINEZOLID 600MG/300ML 300 ML IV SCH ×2 (04:27→15:00)
[2023-06-18 06:01] LABS: Basophils # (auto) 0.1 10 ^3/uL (0-0.2); Basophils % (auto) 0.4 % (0.0-2.0); Eosinophils # (auto) 0.2 10 ^3/uL (0-0.8); Eosinophils % (auto) 1.2 % (0.0-7.0); Hematocrit 42.4 % (41.0-53.0); Hemoglobin 13.9 g/dL (13.5-17.5); Lymphocytes # (auto) 1.9 10 ^3/uL (0.4-5.4); Lymphocytes % (auto) 13.6 % (10.0-50.0); Mean Corpuscular Hemoglobin 28.3 pg (28.0-32.0); Mean Corpuscular Hgb Conc. 32.7 g/dL (32.0-36.0); Mean Corpuscular Volume 86.4 fL (80.0-100.0); Monocytes # (auto) 1.3 10 ^3/uL (0-1.3); Monocytes % (auto) 9.1 % (0.0-12.0); Neutrophils # (auto) 10.8 10 ^3/uL (1.6-8.6); Neutrophils % (auto) 75.7 % (37.0-80.0); Nucleated Red Blood Cells % 0.1 %; Red Blood Cells 4.91 10^6/uL (4.5-5.90); Red Cell Distribution Width 16.5 % (11.8-14.3); White Blood Cell 14.3 10^3/uL (4.4-10.8)
[2023-06-18 06:22] LABS: Potassium 3.3 mmol/L (3.5-5.1)
[2023-06-18 06:29] LABS: Albumin 2.1 g/dL (3.4-5.0); BUN/Creatinine Ratio 36.5 (10.0-20.0); Bilirubin, Total 0.8 mg/dL (0.2-1.0); Calcium 8.9 mg/dL (8.5-10.1); Total Protein 7.5 g/dL (6.4-8.2)
[2023-06-18] MEDS: ALBUTEROL SULF 2.5 MG/0.5ML(0.5%) NEB SOLN NEB SCH ×2 (07:33→11:45)
[2023-06-18] MEDS: IPRATROPIUM BROM 0.5 MG/2.5ML INH SOL NEB SCH ×2 (07:33→11:45)
[2023-06-18] MEDS: ENOXAPARIN SOD 150 MG/1 ML SYRINGE SC SCH (08:10)
[2023-06-18] MEDS: MULTIPLE VITAMINS W/ MINERALS TAB PO SCH (09:09)
[2023-06-18] MEDS: PANTOPRAZOLE 40 MG/10 ML VIAL INJ IV SCH (09:09)
[2023-06-18] MEDS: METOPROLOL TARTRATE 50 MG TAB PO SCH (09:10)
[2023-06-18] MEDS: FUROSEMIDE 40 MG/4 ML VIAL IV SCH (09:10)
[2023-06-18] MEDS: CHOLECALCIFEROL (VITD3) 2,000 UNIT CAP/TAB PO SCH (09:10)
[2023-06-18] MEDS: CEFEPIME 2GM/50ML NS 50 ML IV SCH (09:10)
[2023-06-18] MEDS: ASPirin-EC 81 mg tab PO SCH (09:10)
[2023-06-18] MEDS ORDERED: ERGOCALCIFEROL 50,000 UNIT(1.25MG) CAP PO SCH (09:45)
[2023-06-18] MEDS ORDERED: POTASSIUM EFFERVESENT TAB 25 MEQ PO ONE (09:45)
[2023-06-18] MEDS: DAKINS QUARTER STR 0.125% (NaHypochlorite) 473 ML TOPICAL SOL TOP SCH (10:00)
[2023-06-18] MEDS ORDERED: FURO1TAB33 PO (13:56)
[2023-06-18] MEDS ORDERED: LEVO500T91 PO (13:56)
== END 2023-06-18 18:16 | disposition home or self-care (01) | DRG 720 ==
LOC: ER 11:03 → EDBD 11:03 → TELE 13:56 → DOU IN ICU 23:21 → TELE-WESTW 06-13 14:10
PROVIDERS: ADMIT Nurse Practitioner Acute Care; ATTEND Nurse Practitioner Acute Care
PROC: 5A09357 Assistance with Respiratory Ventilation, Less than 24 Consecutive Hours, Continuous Positive Airway Pressure (ICD-10-PCS; principal; 2023-06-11)
PROC: 5A09357 Assistance with Respiratory Ventilation, Less than 24 Consecutive Hours, Continuous Positive Airway Pressure (ICD-10-PCS; 2023-06-12)
PROC: 5A09357 Assistance with Respiratory Ventilation, Less than 24 Consecutive Hours, Continuous Positive Airway Pressure (ICD-10-PCS; 2023-06-14)
PROC: 5A09357 Assistance with Respiratory Ventilation, Less than 24 Consecutive Hours, Continuous Positive Airway Pressure (ICD-10-PCS; 2023-06-15)
DX: A41.9 Sepsis, unspecified organism (principal); J96.21 Acute and chronic respiratory failure with hypoxia; N17.0 Acute kidney failure with tubular necrosis; R65.21 Severe sepsis with septic shock; E43 Unspecified severe protein-calorie malnutrition; R18.8 Other ascites; I50.43 Acute on chronic combined systolic (congestive) and diastolic (congestive) heart failure; E87.20 Acidosis, unspecified; I13.0 Hypertensive heart and chronic kidney disease with heart failure and stage 1 through stage 4 chronic kidney disease, or unspecified chronic kidney disease; N18.9 Chronic kidney disease, unspecified; L03.115 Cellulitis of right lower limb; I21.A1 Myocardial infarction type 2; E66.2 Morbid (severe) obesity with alveolar hypoventilation; I89.0 Lymphedema, not elsewhere classified; J44.1 Chronic obstructive pulmonary disease with (acute) exacerbation; F15.10 Other stimulant abuse, uncomplicated; F12.10 Cannabis abuse, uncomplicated; E55.9 Vitamin D deficiency, unspecified; E87.6 Hypokalemia; Z99.81 Dependence on supplemental oxygen; Q55.64 Hidden penis; Z82.49 Family history of ischemic heart disease and other diseases of the circulatory system; Z79.899 Other long term (current) drug therapy; Z68.44 Body mass index [BMI] 60.0-69.9, adult
CPT/HCPCS: 36415; 36600; 71045; 76705; 80048; 80053; 80061; 80307; 81001; 82306; 82805; 82962; 83036; 83605; 83735; 83880; 83930; 83970; 84100; 84443; 84484; 85007; 85025; 85027; 85379; 85610; 85730; 87040; 87081; 87086; 87205; 93005; 93306; 93970; 94640; 94660; 96361; 96365; 96367; 96368; 96375; 99291; C9113; G0378; J0692; J0696; J1100; J2405; J3480